=== PATIENT | male | born 1970 | race Caucasian/White ===

== ENCOUNTER 2017-02-17 19:26 | Emergency (ER) | payer OTHER ==
[~2017-02-17] VITALS: Ht 170.2 cm; Wt 74.0 kg
[2017-02-17 21:40] LABS: HEMATOCRIT 41.5 % (38.0-50.0); MCH 35.3 PG (29.0-34.0); MCHC 34.9 G/DL (30.0-36.0); MEAN PLAT.VOLUME 9.4 uM^3 (9.0-12.4); PLATELET COUNT 132 K/uL (156-360); RBC DIS.WIDTH-CV 13.9 % (11.8-14.6); RED BLOOD COUNT 4.11 M/uL (4.00-5.50); WHITE BLOOD COUNT 8.6 K/uL (4.1-10.2)
[2017-02-17 21:48] LABS: CHLORIDE 100 mEq/L (99-109); POTASSIUM 3.6 mEq/L (3.7-5.4); SODIUM 136 mEq/L (136-147)
[2017-02-17 21:50] LABS: GLUCOSE 105 mg/dL (70-99)
[2017-02-17 21:51] LABS: ANION GAP 12 MEQ/L (2-14)
[2017-02-17 21:54] LABS: GFR ESTIMATE (CALCULATED) > 59 mL/min/; UREA NITROGEN (BUN) 14 mg/dL (9-23)
[2017-02-17 21:56] LABS: URIC ACID 5.9 mg/dL (3.1-9.2)
[2017-02-17] MEDS ORDERED: TRAMADOL HCL50 MG PO (22:25)
[2017-02-17] MEDS ORDERED: INDOCIN50 MG PO (22:25)
[2017-02-17 22:45] LABS: C-REACTIVE PROTEIN 6.7 MG/L (0-10); SAMPLE HEMOLYSIS CHECK 0; SAMPLE ICTERIC CHECK 0; SAMPLE LIPEMIA CHECK 0
[2017-02-17] MEDS ORDERED: KEFLEX500 MG PO (22:49)
[2017-02-17 22:59] VITALS: BP 180/97
== END 2017-02-17 23:01 | disposition home or self-care (01) ==
LOC: EME 19:26
PROVIDERS: Physician Assistant
DX: M25.531 Pain in right wrist (principal); M79.89 Other specified soft tissue disorders; L53.9 Erythematous condition, unspecified; F17.200 Nicotine dependence, unspecified, uncomplicated
CPT/HCPCS: 80048; 84550; 85027; 86140; 99281; 99284

== ENCOUNTER 2018-02-23 19:12 | Observation (INO) | payer OTHER ==
[~2018-02-23] VITALS: Ht 175.3 cm; Wt 70.2 kg
[~2018-02-23 19:12] MED LIST: INDOCIN50 MG PO; KEFLEX500 MG PO; TRAMADOL HCL50 MG PO
[2018-02-23 20:00] LABS: HEMATOCRIT 40.1 % (38.0-50.0); HEMOGLOBIN 14.5 G/DL (12.5-16.6); MCH 36.5 PG (29.0-34.0); MCHC 36.2 G/DL (30.0-36.0); PLATELET COUNT 165 K/uL (156-360); RBC DIS.WIDTH-CV 13.6 % (11.8-14.6); RBC DIS.WIDTH-SD 50.6 % (39-53); RED BLOOD COUNT 3.97 M/uL (4.00-5.50); WHITE BLOOD COUNT 7.3 K/uL (4.1-10.2)
[2018-02-23 20:13] LABS: CHLORIDE 94 mEq/L (99-109); SODIUM 137 mEq/L (136-147)
[2018-02-23 20:15] LABS: GLUCOSE 114 mg/dL (70-99)
[2018-02-23 20:19] LABS: CREATININE 0.8 mg/dL (0.6-1.3); GFR ESTIMATE (CALCULATED) > 59 mL/min/ (58.99-99999)
[2018-02-23 20:20] LABS: UREA NITROGEN (BUN) 8 mg/dL (9-23)
[2018-02-23 20:23] LABS: TROP-I INTERPRETATION NEGATIVE; TROPONIN-I < 0.01 ng/mL (0.0-0.30)
[2018-02-23 22:36] LABS: SERUM ETHYL ALCOHOL 122 mg/dL
[2018-02-23] MEDS ORDERED: ALEVE220 MG PO (23:15)
[2018-02-23] MEDS ORDERED: TYLENOL REGULA325 MG PO (23:15)
[2018-02-23] MEDS ORDERED: FLONASE16 G1 BOTH NARES (23:15)
[2018-02-24 00:58] LABS: MAGNESIUM 2.2 mg/dL (1.3-2.7)
[2018-02-24 02:28] VITALS: BP 144/95
[2018-02-24 03:06] LABS: TROP-I INTERPRETATION NEGATIVE; TROPONIN-I < 0.01 ng/mL (0.0-0.30)
[2018-02-24 04:37] VITALS: BP 123/73
[2018-02-24 07:20] VITALS: BP 116/83
[2018-02-24 08:41] LABS: CHLORIDE 96 MEQ/L (99-109); CREATININE 0.6 MG/DL (0.6-1.3); GFR ESTIMATE (CALCULATED) > 59 mL/min/ (58.99-99999); GLUCOSE 117 mg/dL (70-99); SODIUM 138 MEQ/L (136-147); UREA NITROGEN (BUN) 7 mg/dL (9-23)
[2018-02-24 08:42] LABS: POTASSIUM 3.9 MEQ/L (3.7-5.4)
[2018-02-24 08:57] LABS: TROP-I INTERPRETATION NEGATIVE; TROPONIN-I < 0.01 ng/mL (0.0-0.30)
[2018-02-24] MEDS ORDERED: LO-DOSE ASPIRIN81 M2 PO (11:56)
[2018-02-24] MEDS ORDERED: CARDIZEM60 MG PO (11:56)
[2018-02-24] MEDS ORDERED: NITROSTAT0.4 MG SL (11:56)
[2018-02-24 15:00] LABS: HDL CHOLESTEROL 79 MG/DL (Desirable>=40); LDL CHOLESTEROL 106 mg/dL (Desirable<100); NON-HDL CHOLESTEROL 131 mg/dL (Desirable<160); TOTAL CHOLESTEROL 210 mg/dL (Desirable<200); TRIGLYCERIDES 127 MG/DL (Normal: <150)
== END 2018-02-24 15:15 | disposition home or self-care (01) ==
LOC: EME 19:12 → EDOF 02-24 00:20 → 4SOUTH 02-24 02:14
PROVIDERS: Internal Medicine; Physician Assistant
DX: R07.89 Other chest pain (principal); F14.10 Cocaine abuse, uncomplicated; F17.210 Nicotine dependence, cigarettes, uncomplicated; I10 Essential (primary) hypertension; F10.10 Alcohol abuse, uncomplicated; E87.6 Hypokalemia; J45.909 Unspecified asthma, uncomplicated; E78.5 Hyperlipidemia, unspecified; Z91.14 Patient's other noncompliance with medication regimen; Z82.49 Family history of ischemic heart disease and other diseases of the circulatory system
CPT/HCPCS: 71046; 80048; 80061; 83735; 83880; 84484; 85027; 87641; 93005; G0378; G0480; J1644; J2060; J3411; J7030